=== PATIENT | female | born 1960 | race Caucasian/White ===

== ENCOUNTER 2017-04-07 05:37 | Outpatient (CLI) | payer BC ==
[~2017-04-07] VITALS: Ht 157.5 cm; Wt 50.8 kg
[~2017-04-07 05:37] MED LIST: HYDR1TAB86 PO
== END 2017-04-07 10:20 ==
LOC: PREOP 05:37
PROVIDERS: ATTEND Surgery
DX: Z01.818 Encounter for other preprocedural examination (principal); Z12.11 Encounter for screening for malignant neoplasm of colon

== ENCOUNTER 2017-04-11 07:03 | Day surgery (SDC) | payer BC ==
[~2017-04-11] VITALS: Ht 157.5 cm; Wt 50.8 kg
--- OUTSIDE RECORDS SUMMARY | 2017-04-11 07:05 | XMS REPORT | Continuity of Care Document ---
Author Author [facility] Organization [facility] Address Unknown Phone Unavailable Allergies Active Description Code Type Severity Reaction Onset Reported/Identified Relationship to Patient Clinical Status Yes No Known Drug Allergies [id number] Drug Allergy Unknown N/ A 05/21/2012 Medications Problems Date Dx Coded Attending Type Code Diagnosis Diagnosed By 01/12/2016 KESHA DPM, NEYMAR Q Ot M79.661 PAIN IN RIGHT LOWER LEG 01/12/2016 KESHA DPM, NEYMAR Q Ot M79.89 OTHER SPECIFIED SOFT TISSUE DISORDERS 01/15/2016 KESHA DPM, NEYMAR Q Ot M79.661 PAIN IN RIGHT LOWER LEG 01/15/2016 KESHA DPM, NEYMAR Q Ot M79.89 OTHER SPECIFIED SOFT TISSUE DISORDERS 01/17/2016 KESHA DPM, NEYMAR Q Ot M79.661 PAIN IN RIGHT LOWER LEG 01/17/2016 KESHA DPM, NEYMAR Q Ot M79.89 OTHER SPECIFIED SOFT TISSUE DISORDERS 02/05/2016 KESHA DPM, NEYMAR Q Ot M79.661 PAIN IN RIGHT LOWER LEG 02/05/2016 KESHA DPM, NEYMAR Q Ot M79.89 OTHER SPECIFIED SOFT TISSUE DISORDERS Procedures Results Encounters ACCT No. Visit Date/Time Discharge Status Pt. Type Provider Facility Loc./Unit Complaint [id number] 01/11/2016 14:45:00 2015 23:59:59 CLS Outpatient KESHA DPM, NEYMAR Q [facility] RAD [id number] 03/26/2013 13:15:00 2012 17:25:00 DIS Outpatient [id number] 03/26/2013 10:31:00 2012 23:59:59 CLS Outpatient [id number] 04/11/2017 08:00:00 PEN Preadmit [place] ENCINAS DO [facility] ENDO SCREENING
[2017-04-11] MEDS ORDERED: LACTATED RINGERS 1,000 ML IV STA (07:09)
[2017-04-11] MEDS ORDERED: MIDAZOLAM 2 MG/2 ML (VERSED) VIAL ONE ×2 (07:19→08:07)
[2017-04-11] MEDS ORDERED: proPOfol 200 MG/20 ML (DIPRIVAN) VIAL IV ONE ×2 (07:19→08:10)
[2017-04-11 07:32] VITALS: BP 108/67
--- NOTE | 2017-04-11 07:43 | Progress Note-Pre Operative ---
Pre-Operative Progress Note H&P Reviewed The H&P was reviewed, patient examined and no changes noted. Date Seen by Provider: Apr 11, 2017 Time Seen by Provider: 07:43 Date H&P Reviewed: Apr 11, 2017 Time H&P Reviewed: 07:43 Pre-Operative Diagnosis: screening colonoscopy [place] ENCINAS DO Apr 11, 2017 7:43 am
--- NOTE | 2017-04-11 08:25 | Progress Note-Post Operative ---
Post-Operative Progess Note Surgeon (s)/Locomotive Electrician (s) Surgeon [place] ENCINAS DO Locomotive Electrician: na Pre-Operative Diagnosis screening colonoscopy Post-Operative Diagnosis normal colon Procedure & Operative Findings Date of Procedure 04/11/17 Procedure Performed/Findings colonoscopy Anesthesia Type per unit secy Estimated Blood Loss Estimated blood loss (mL): none Specimens/Packing Specimens Removed na [place] ENCINAS DO Apr 11, 2017 8:25 am
--- NOTE | 2017-04-11 08:26 | Discharge Inst-Simple/Standard ---
Discharge Inst-Standard Patient Instructions/Follow Up Plan of Care/Instructions/FU: 10 year repeat colonoscopy unless family history or personal history of polyps which would be 5 years. If you have any problems before that be re-evaluated at that time. Activity as Tolerated: Yes Discharge Diet: Regular Diet NY ENCINAS DO Apr 11, 2017 8:26 am
[2017-04-11 08:30] VITALS: BP 112/60
[2017-04-11 09:10] VITALS: BP 119/64
[2017-04-11 09:16] VITALS: BP 119/64
--- NOTE | 2017-04-11 13:04 | OPERATIVE REPORT ---
DATE OF SERVICE: 04/11/2017 PREOPERATIVE DIAGNOSIS: Screening colonoscopy. POSTOPERATIVE DIAGNOSIS: Normal colon. PROCEDURE: Colonoscopy. SURGEON: Ny Madrigal DO ANESTHESIA: Per CHANGE MANAGEMENT ADMINISTRATOR. ESTIMATED BLOOD LOSS: None. COMPLICATIONS: None. INDICATIONS: The patient is a 56-year-old female in need of screening colonoscopy. She understands risks and benefits of procedure and wished to proceed with procedure. Consent was signed and in the chart. DESCRIPTION OF PROCEDURE: The patient was taken to the endoscopy suite, placed in left lateral recumbent position. Timeout was performed. A digital rectal exam was performed and there were no palpable polyps, masses or ulcerations. Scope was inserted in the rectum and advanced all the way to the cecum with minimal difficulty. Prep was adequate. Scope was then slowly retracted back. There were no polyps, masses or ulcerations within the cecum, ascending, transverse and descending colon. There were no polyps, masses or ulcerations in the entire colon. Once in the rectum, it was also retroflexed noting no other pathology. Scope was returned to its normal position, slowly withdrawn until completely removed. The patient tolerated the procedure well without any complications. RECOMMENDATIONS: The patient will need repeat colonoscopy in 10 years unless family history of colon cancer, personal history of colon polyps which would then be 5 years. If she has any problems prior to that, she should be reevaluated at that time. Job ID: [id number] DocumentID: [id number] Dictated Date: 04/11/2017 08:23:39 Maintenance Repairman Date: 04/11/2017 13:03:28 Dictated By: NY MADRIGAL DO MTDD
== END 2017-04-11 09:30 | disposition home or self-care (01) ==
LOC: ENDO 07:03
PROVIDERS: ATTEND Surgery
DX: Z12.11 Encounter for screening for malignant neoplasm of colon (principal); G62.9 Polyneuropathy, unspecified; Z79.899 Other long term (current) drug therapy

== ENCOUNTER 2021-03-02 21:07 | Emergency (ER) | payer BC ==
[~2021-03-02] VITALS: Ht 157.5 cm; Wt 46.7 kg
[2021-03-02] MEDS ORDERED: AUGMENTIN 875 MG TAB (AMOXICILLIN/CLAVULANATE) PO STA (22:31)
[2021-03-02] MEDS ORDERED: AMOX-358 PO (22:34)
--- NOTE | 2021-03-02 22:36 | ED Integumentary General ---
General Chief Complaint: Bite-Animal/Human/Insect Stated Complaint: DOG BITE L LEG History of Present Illness Date Seen by Provider: Mar 02, 2021 Time Seen by Provider: 22:15 Initial Comments 60-year-old female presents after a dog bite to the left thigh. She states this happened at approximately 2030 tonight. The production planner she reports that the dog has been vaccinated for rabies. They did not have documentation. The long portion is present to get reports and will verify tomorrow if the dog is vaccinated. The patient believes that she received all of her vaccines including a tetanus approximately 2 years ago. The wound was washed with skin prep and triple antibiotic ointment was applied prior to arrival. There is no active bleeding from the wounds. Timing/Duration: this evening Severity: mild Location: extremities (Left thigh) Possible Cause: other (Dog bite) Associated Symptoms: denies symptoms Allergies and Home Medications Allergies Coded Allergies: No Known Drug Allergies (Unverified , 05/21/12) Home Medications Amoxicillin/Potassium Clav 1 Each Tablet, 1 EACH PO BID Prescribed by: DEJA WINSTON on 03/02/21 [id number] Patient Home Medication List Home Medication List Reviewed: Yes Review of Systems Review of Systems Constitutional: no symptoms reported, see HPI Skin: see HPI, other (Skin lacerations.......... Patient. Secondary to dog bite) All Other Systems Reviewed Negative Unless Noted: Yes Past Obttobd-Ugqezr-Rpyegt Hx Immunizations Up To Date Tetanus Booster (TDap): Unknown Seasonal Allergies Seasonal Allergies: No Past Medical History Gallbladder Reproductive Disorders: No Family Medical History Reviewed and Corrections made Physical Exam Vital Signs Vital Signs - First Documented 03/02/21 21:55 Temp 36.2 Pulse 71 Resp 20 B/P (MAP) 146/80 (102) Pulse Ox 98 O2 Delivery Room Air Capillary Refill : General Appearance: WD/WN, no apparent distress Cardiovascular: normal peripheral pulses, regular rate, rhythm Respiratory: chest non-tender, lungs clear, normal breath sounds Extremities: no pedal edema, no calf tenderness, normal capillary refill, other (superficial abrasions and ecchymosis to the anterior and lateral left thigh. Full range of motion to the left hip and full motor strength to the left quad.) Neurologic/Psychiatric: no motor/sensory deficits, alert, normal mood/affect, oriented x 3 Skin Problem Location: lower extremities (Left thigh) Skin Problem Character: tenderness Progress/Results/Core Measures Results/Orders My Orders Orders - DEJA WINSTON Amoxicillin/Clavulanate Tablet (Augmenti (03/02/21 22:31) Vital Signs/I&O 03/02/21 21:55 Temp 36.2 Pulse 71 Resp 20 B/P (MAP) 146/80 (102) Pulse Ox 98 O2 Delivery Room Air Progress Progress Note : Time: 22:15 Progress Note Patient seen and evaluated, wound cleaned with sterile saline and Hibiclens. Sterile dressing with Deshaun wrap applied. Ice pack to wound. Law Enforcement took report and will verify vaccination of the dog tomorrow. Discussed at length with the patient and her about starting the rabies vaccine and the IgG injection. At this time they wish to wait and verify vaccination before starting. She also wishes to verify with her PCP before getting a tetanus vaccine. Discharge instructions and return precautions reviewed with the patient. Departure Impression Primary Impression: Dog bite Qualified Codes: W54.0XXA - Bitten by dog, initial encounter Disposition: HOME, SELF-CARE Condition: Improved Departure-Patient Inst. Decision time for Depature: 22:50 Referrals: MARJORIE ANGLIN MD (PCP/Family) Primary Care Physician Patient Instructions: Animal Bites (DC) Add. Discharge Instructions: Keep wound clean and dry with soap and water and apply antibiotic ointment. Take antibiotics as prescribed. Once you obtain verification of the animals vaccination status you can decide if you want the Rabies shots and IGG wound injection. Follow-up with your primary care provider to determine if you have had a tetanus vaccine in the last 5 years. Watch for signs of infection: Redness, swelling, fever, discolored drainage. Apply ice to the left thigh for 20 minutes every 2 hours while awake to help with swelling. Return to the emergency department for new, urgent healthcare needs. All discharge instructions reviewed with patient and/or family. Voiced understanding. Scripts Amoxicillin/Potassium Clav (Augmentin 875-125 Tablet) 1 Each Tablet 1 EACH PO BID, #20 TAB 0 Refills Prov: DEJA WINSTON 03/02/21 Copy Copies To 1: MARJORIE ANGLIN MD, AMY ARNP Mar 02, 2021 22:36
[2021-03-02 23:13] VITALS: BP 146/80
== END 2021-03-02 23:13 | disposition home or self-care (01) ==
LOC: EDUNIT# 21:07 → ER 21:10
DX: S71.152A Open bite, left thigh, initial encounter (principal); W54.0XXA Bitten by dog, initial encounter
CPT/HCPCS: 99283

== ENCOUNTER 2021-04-14 06:53 | Day surgery (SDC) | payer BC ==
[2021-04-14] VITALS (9 sets, daily range): BP systolic 88–108; BP diastolic 44–54
[~2021-04-14] VITALS: Ht 157.4 cm; Wt 42.2 kg
[~2021-04-14 06:53] MED LIST changes: +AMOX-358 PO
[2021-04-14] MEDS ORDERED: LACTATED RINGERS 1,000 ML IV ONE (07:00)
[2021-04-14] MEDS ORDERED: ONDANSETRON 4 MG/2 ML (SDV) Z0FRAN IVP ONE (07:00)
[2021-04-14] MEDS ORDERED: fentaNYL INJ 100 MCG/2 ML AMP IVP ONE (07:30)
[2021-04-14] MEDS ORDERED: ESCI-2 (07:32)
[2021-04-14] MEDS ORDERED: morphine INJ 10 MG/ML 1ML (SYR OR VIAL) IVP STA (07:32)
[2021-04-14 07:33] LABS: BASOPHILS # (AUTO) 0.1 10^3/uL (0.0-0.1); BASOPHILS % (AUTO) 1 % (0-10); EOSINOPHILS % (AUTO) 0 % (0-10); HEMATOCRIT 40 % (35-52); HEMOGLOBIN 13.8 g/dL (11.5-16.0); LYMPHOCYTES # (AUTO) 0.7 10^3/uL (1.0-4.0); LYMPHOCYTES % (AUTO) 6 % (12-44); MEAN CORPUSCULAR HEMOGLOBIN 32 pg (25-34); MEAN CORPUSCULAR HGB CONC 35 g/dL (32-36); MEAN CORPUSCULAR VOLUME 91 fL (80-99); MEAN PLATELET VOLUME 9.8 fL (9.0-12.2); MONOCYTES # (AUTO) 0.3 10^3/uL (0.0-1.0); MONOCYTES % (AUTO) 3 % (0-12); NEUTROPHILS # (AUTO) 10.7 10^3/uL (1.8-7.8); NEUTROPHILS % (AUTO) 90 % (42-75); PLATELET COUNT 267 10^3/uL (130-400); WHITE BLOOD COUNT 11.8 10^3/uL (4.3-11.0)
[2021-04-14 07:37] LABS: ALBUMIN 4.7 GM/DL (3.2-4.5)
[2021-04-14 07:38] LABS: CHLORIDE 102 MMOL/L (98-107); POTASSIUM 3.6 MMOL/L (3.6-5.0); SODIUM 139 MMOL/L (135-145)
[2021-04-14 07:39] LABS: CALCIUM 10.6 MG/DL (8.5-10.1)
[2021-04-14 07:40] LABS: GLUCOSE 198 MG/DL (70-105); TOTAL PROTEIN 8.7 GM/DL (6.4-8.2)
[2021-04-14 07:41] LABS: CARBON DIOXIDE 18 MMOL/L (21-32)
[2021-04-14 07:42] LABS: BILIRUBIN,TOTAL 0.8 MG/DL (0.1-1.0)
[2021-04-14 07:43] LABS: ALKALINE PHOSPHATASE 75 U/L (40-136)
[2021-04-14 07:44] LABS: CREATININE SERUM 1.06 MG/DL (0.60-1.30); GFR ESTIMATED 53
[2021-04-14 07:45] LABS: BUN/CREATININE RATIO 16
--- NOTE | 2021-04-14 07:45 | ED Abdominal Pain ---
General Chief Complaint: Abdominal/GI Problems Stated Complaint: VOMITING,WEAK,ABD PAIN Nursing Triage Note: ARRIVED VIA WC FROM HOME. GI CRAMPING AND VOMITING STARTING YESTERDAY. Source of Information: Patient, Spouse Exam Limitations: No Limitations (JIMMY CH STUDENT) History of Present Illness Date Seen by Provider: Apr 14, 2021 Time Seen by Provider: 07:25 Initial Comments This is [place], a 60 yo F who presents to the ED with c/o abdominal pain. The cramping started yesterday around 1100, stated that she had a grapefruit that morning that might have been a little bit sour. No other foods out of the ordinary mentioned. The vomiting started at 1300 yesterday and has not subsided as of today. The cramping and vomiting got worse overnight, she has now developed abdominal pain, rated as 10/10. She was having constipation and took 2 doses of laxatives, she had a bowel movement this morning. Positive for nausea, vomiting, abdominal pain, constipation, headaches, shortness of breath and dizziness. Denies diarrhea, chest pain, palpitations, cough, fever. Denies chills, but is cold at the moment. Timing/Duration: 12-24 Hours Severity/Quality: Severe, Cramping, Other (constant) Location: Generalized Abdomen Radiation: No Radiation Activities at Onset: Rest Modifying Factors: Worsens With Movement, Worsens With Palpation, Worsens With Vomiting Associated Symptoms: No Diaphoresis, No Fatigue; Headache, Nausea/Vomiting, Shortness of Air (JIMMY CH STUDENT) Activities at Onset: Rest (JITENDRA YANG MD) Allergies and Home Medications Allergies Coded Allergies: No Known Drug Allergies (Unverified , 05/21/12) Patient Home Medication List Home Medication List Reviewed: Yes (JITENDRA YANG MD) Docusate Sodium (Colace) 100 Mg Capsule, 100 MG PO DAILY Prescribed by: NY ENCINAS on 04/14/21 1639 Escitalopram Oxalate (Escitalopram Oxalate) 10 Mg Tablet, (Reported) Entered as Reported by: POLI WEBB on 04/14/21 0732 Last Action: New Order Hydrocodone/Acetaminophen (Hydrocodone-Acetamin 5-325 mg) 1 Each Tablet, 1 EACH PO Q4H PRN for PAIN-MODERATE (5-7) Prescribed by: NY ENCINAS on 04/14/21 1640 Discontinued Medications Amoxicillin/Potassium Clav (Augmentin 875-125 Tablet) 1 Each Tablet, 1 EACH PO BID Discontinued Reason: No Longer Taking Prescribed by: DEJA WINSTON on 03/02/212233 Last Action: Discontinued Review of Systems Review of Systems Constitutional: No chills, No diaphoresis; dizziness; No fever EENTM: No Symptoms Reported Respiratory: Denies Cough; Shortness of Air Cardiovascular: Denies Chest Pain, Denies Palpitations Gastrointestinal: Abdominal Pain; Denies Blood Streaked Stools; Constipated; Denies Diarrhea; Nausea, Poor Fluid Intake, Vomiting Genitourinary: No Symptoms Reported Musculoskeletal: no symptoms reported Skin: no symptoms reported Psychiatric/Neurological: Depressed, Headache (JIMMY CH MED STUDENT) Past Jbxpvdn-Oobioa-Jecasi Hx Patient Social History Tobacco Use?: No Smoking Status: Never a Smoker Substance use?: No (JIMMY CH Medialets STUDENT) Immunizations Up To Date Tetanus Booster (TDap): Unknown Second COVID19 Vaccination Vikas: 10/04 COVID19 Vaccine [employer] 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 (JIMMY CH Medialets STUDENT) Seasonal Allergies Seasonal Allergies: No (JIMMY CH Medialets STUDENT) Past Medical History Surgeries: Yes Gallbladder Respiratory: No Cardiac: No Neurological: No Reproductive Disorders: No 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 0.0oz. [id number]; 18.00 BMI Method: General Appearance: WD/WN, severe distress Neck: non-tender, supple; No lymphadenopathy (R), No lymphadenopathy (L) Respiratory: chest non-tender, lungs clear, normal breath sounds Cardiovascular: normal peripheral pulses, regular rate, rhythm, no murmur Gastrointestinal: normal bowel sounds, guarding, tenderness (tenderness with stethoscope placement ) Neurologic/Psychiatric: alert, normal mood/affect, oriented x 3 Skin: normal color, cool (JIMMY CH MED STUDENT) Progress/Results/Core Measures Results/Orders Lab Results Laboratory Tests Test 04/14/21 07:22 04/14/21 07:58 04/14/21 09:12 Range/Units White Blood Count 11.8 H 4.3-11.0 10^3/uL Red Blood Count 4.35 3.80-5.11 10^6/uL Hemoglobin 13.8 11.5-16.0 g/dL Hematocrit 40 35-52 % Mean Corpuscular Volume 91 80-99 fL Mean Corpuscular Hemoglobin 32 25-34 pg Mean Corpuscular Hemoglobin Concent 35 32-36 g/dL Red Cell Distribution Width 12.1 10.0-14.5 % Platelet Count 267 130-400 10^3/uL Mean Platelet Volume 9.8 9.0-12.2 fL Immature Granulocyte % (Auto) 0 % Neutrophils (%) (Auto) 90 H 42-75 % Lymphocytes (%) (Auto) 6 L 12-44 % Monocytes (%) (Auto) 3 0-12 % Eosinophils (%) (Auto) 0 0-10 % Basophils (%) (Auto) 1 0-10 % Neutrophils # (Auto) 10.7 H 1.8-7.8 10^3/uL Lymphocytes # (Auto) 0.7 L 1.0-4.0 10^3/uL Monocytes # (Auto) 0.3 0.0-1.0 10^3/uL Eosinophils # (Auto) 0.0 0.0-0.3 10^3/uL Basophils # (Auto) 0.1 0.0-0.1 10^3/uL Immature Granulocyte # (Auto) 0.1 0.0-0.1 10^3/uL Neutrophils % (Manual) 88 % Lymphocytes % (Manual) 8 % Monocytes % (Manual) 3 % Eosinophils % (Manual) 0 % Basophils % (Manual) 0 % Band Neutrophils 1 % Blood Morphology Comment NORMAL Sodium Level 139 135-145 MMOL/L Potassium Level 3.6 3.6-5.0 MMOL/L Chloride Level 102 98-107 MMOL/L Carbon Dioxide Level 18 L 21-32 MMOL/L Anion Gap 19 H 5-14 MMOL/L Blood Urea Nitrogen 17 7-18 MG/DL Creatinine 1.06 0.60-1.30 MG/DL Estimat Glomerular Filtration Rate 53 BUN/Creatinine Ratio 16 Glucose Level 198 H 70-105 MG/DL Calcium Level 10.6 H 8.5-10.1 MG/DL Corrected Calcium 8.5-10.1 MG/DL Magnesium Level 1.9 1.6-2.4 MG/DL Total Bilirubin 0.8 0.1-1.0 MG/DL Aspartate Amino Transf (AST/SGOT) 28 5-34 U/L Alanine Aminotransferase (ALT/SGPT) 29 0-55 U/L Alkaline Phosphatase 75 40-136 U/L C-Reactive Protein High Sensitivity 0.05 0.00-0.50 MG/DL Total Protein 8.7 H 6.4-8.2 GM/DL Albumin 4.7 H 3.2-4.5 GM/DL Lipase 30 8-78 U/L Influenza Type A (RT-PCR) Not Detected Not Detecte Influenza Type B (RT-PCR) Not Detected Not Detecte SARS-CoV-2 RNA (RT-PCR) Not Detected Not Detecte Urine Color YELLOW Urine Clarity CLEAR Urine pH 7.0 5-9 Urine Specific [place] 1.010 L 1.016-1.022 Urine Protein TRACE H NEGATIVE Urine Glucose (UA) NEGATIVE NEGATIVE Urine Ketones 3+ H NEGATIVE Urine Nitrite NEGATIVE NEGATIVE Urine Bilirubin NEGATIVE NEGATIVE Urine Urobilinogen 0.2 < = 1.0 MG/DL Urine Leukocyte Esterase NEGATIVE NEGATIVE Urine RBC (Auto) TRACE-L NEGATIVE Urine RBC RARE /HPF Urine WBC NONE /HPF Urine Squamous Epithelial Cells RARE /HPF Urine Crystals NONE /LPF Urine Bacteria TRACE /HPF Urine Casts NONE /LPF Urine Mucus RARE /LPF Urine Culture Indicated NO (JITENDRA YANG MD) My Orders Orders - JITENDRA YANG MD Cbc With Automated Diff (04/14/21 06:58) Comprehensive Metabolic Panel (04/14/21 06:58) Lipase (04/14/21 06:58) Magnesium (04/14/21 06:58) Ua Culture If Indicated (04/14/21 06:58) Ed Iv/Invasive Line Start (04/14/21 06:58) Ondansetron Injection (Zofran Injectio (04/14/21 07:00) Lactated Ringers (Lr 1000 Ml Iv Solution (04/14/21 07:00) Fentanyl Inj (Sublimaze Injection) (04/14/21 07:30) Morphine Injection (Morphine Injection (04/14/21 07:32) Manual Differential (04/14/21 07:22) Influenza A And B By Pcr (04/14/21 07:57) Covid 19 Inhouse Test (04/14/21 07:57) Hs C Reactive Protein (04/14/21 08:01) Ct Abdomen/Pelvis W (04/14/21 08:01) Chest 1 View, Ap/Pa Only (04/14/21 08:01) Iohexol Injection (Omnipaque 350 Mg/Ml 1 (04/14/21 08:15) Received Contrast (Hold Metformin- Contr (04/14/21 08:15) Sodium Chloride Flush (Catheter Flush Sy (04/14/21 08:15) Ns (Ivpb) (Sodium Chloride 0.9% Ivpb Bag (04/14/21 08:15) (JITENDRA YANG MD) Medications Given in ED (JITENDAR YANG MD) Vital Signs/I&O 04/14/21 07:10 Temp 35.6 Pulse 69 Resp 16 B/P (MAP) 110/71 (84) Pulse Ox 100 O2 Delivery Room Air (JITENDRA YANG MD) Blood Pressure Mean: 84 Progress Progress Note : Time: 08:00 Progress Note 0800 Pt has requested a covid-19 test. She was informed that these are not the typical symptoms of covid, but that her labs showed lymphopenia. Pt kidney function came back normal. She was informed of doing the CT scan with contrast. (JIMMY CH MED STUDENT) Progress Note : Time: 10:29 Progress Note Patient's pain was only minimally improved with fentanyl. Morphine was then given which improved her pain greatly. Repeat examination after pain was controlled revealed point tenderness in the very far right lower quadrant. CT scan was viewed by me and reviewed with Dr. Beebe. There was concern for a di lated appendix with appendicolith. These findings were suspicious for acute uncomplicated appendicitis. These findings were discussed with Dr. Encinas who requested the patient be admitted for probable appendectomy. (JITENDRA YANG MD) Diagnostic Imaging Diagonstic Imaging: CT Plain Films/CT/US/NM/MRI: abdomen, pelvis Comments CT abdomen pelvis viewed by me and report reviewed. See report below: NAME: SHAWNEE REBOLLEDO [facility] REC#: [id number] PT STATUS: REG ER : 1960 PHYSICIAN: JITENDRA YANG MD ADMIT DATE: 04/14/21/ER Draft Date of Exam:04/14/21 CT ABDOMEN/PELVIS W PROCEDURE: CT abdomen and pelvis with contrast. TECHNIQUE: Multiple contiguous axial images were obtained through the abdomen and pelvis after administration of intravenous contrast. Auto Exposure Controls were utilized during the CT exam to meet ALARA standards for radiation dose reduction. All CT scans use one or more of the following dose optimizing techniques: automated exposure control, MA and/or KvP adjustment based on patient size and exam type or iterative reconstruction. INDICATION: Cramping and abdominal pain. FINDINGS: The previous CT abdomen/pelvis exam performed on 03/26/2013 noted cholelithiasis with acute cholecystitis. In the interval since the prior exam, the patient has undergone a cholecystectomy. Surgical clips are now evident in the gallbladder fossa. The common bile duct near its entrance to the head of pancreas is dilated measuring 10 mm (normal 5 to 6 mm or less). There is no evidence for choledocholithiasis or for a pancreatic mass and the dilatation of the common bile duct may be a sequela of the patient's prior cholecystectomy. If further evaluation of the duct is desired, however, then MRCP would be recommended. The liver itself is not enlarged and appears homogeneous. The spleen, pancreas, kidneys, adrenals, aorta, inferior vena cava, and portal vein show no sign of an acute abnormality. The stomach is partially filled with fluid and difficult to assess. There is some fluid in the 2nd and 3rd portions of the duodenum. This is nonspecific but could be related to mild duodenitis. The images through the pelvis show that there is a tubular structure extending from the tip of the cecum. There does seem to be an appendicolith present near the base of the appendix and I suspect that this tubular structure is a slightly enlarged appendix as it measures roughly 10 mm in size (normal 8 mm or less). There does not appear to be any significant distortion of the periappendiceal fat but the possibility of early appendicitis should certainly be considered. If clinically indicated, a surgical consult would be recommended. There is no pelvic mass or free fluid collection noted. As seen on the prior exam, there are tubal ligation clips on each side of the uterus. The urinary bladder is grossly unremarkable. The bone windows show no sign of a fracture or destructive lesion. There is fairly severe degenerative disc and bony disease at L3-L4 and L4-L5. The lung bases are clear. IMPRESSION: 1. The tubular structure extending from the tip of the cecum is suspicious for a slightly inflamed appendix. Clinical followup is recommended. 2. The fluid in the 2nd and 3rd portions of the duodenum is nonspecific. The possibility of mild duodenitis should also be considered. 3. There has been an interval cholecystectomy. 4. These results were discussed with Dr. Mcconnell at the time of this dictation. CRITICAL FINDING Dictated on workstation # [id number] Dict: 04/14/21915 Trans: 04/14/21936 [id number] Interpreted by: NO BEEBE MD Diagonstic Imaging: Xray Plain Films/CT/US/NM/MRI: chest Comments Chest x-ray viewed by me and report reviewed. See report below: NAME: SHAWNEE REBOLLEDO [facility] REC#: [id number] PT STATUS: REG ER : 1960 PHYSICIAN: JITENDRA YANG MD ADMIT DATE: 04/14/21/ER Signed Date of Exam:04/14/21 CHEST 1 VIEW, AP/PA ONLY INDICATION: Abdominal pain with vomiting x1 day Portable chest 10:03 AM There is no intraperitoneal free air. Lungs are clear. There are no effusions or pneumothoraces. Heart size and pulmonary vascularity are normal. IMPRESSION: Negative chest. Dictated by: Dictated on workstation # [id number] Dict: 04/14/21908 Trans: 04/14/21919 [facility] [id number] Interpreted by: ARNOLDO PIRES MD Electronically signed by: ARNOLDO PIRES MD 04/14/21919 (JITENDRA YANG MD) Departure Communication (Admissions) Time/Spoke to Admitting Phy: 09:55 Dr. Encinas (JITENDRA YANG MD) Impression Primary Impression: Acute appendicitis Qualified Codes: K35.30 - Acute appendicitis with localized peritonitis, without perforation or gangrene Additional Impressions: Nausea & vomiting Qualified Codes: R11.2 - Nausea with vomiting, unspecified Generalized abdominal pain Disposition: ADMITTED INPATIENT Condition: Improved Admissions Decision to Admit Reason: Admit from ER (General) Decision to Admit/Date: Apr 14, 2021 Time/Decision to Admit Time: 09:55 (JITENDRA YANG MD) Departure-Patient Inst. Referrals: MARJORIE ANGLIN MD (PCP/Family) Primary Care Physician Scripts Hydrocodone/Acetaminophen (Hydrocodone-Acetamin 5-325 mg) 1 Each Tablet 1 EACH PO Q4H PRN for PAIN-MODERATE (5-7), #30 TAB Prov: NY ENCINAS DO 04/14/21 Docusate Sodium (Colace) 100 Mg Capsule 100 MG PO DAILY, #30 CAP Prov: NY ENCINAS DO 04/14/21 Medical Student Attestation and Attending Note: I have personally interviewed and examined this patient along with HUMERA Vega. I have reviewed student documentation including history, physical, and assessments. I agree with the documentation except where otherwise noted. Exam: General: Alert, oriented, moderate distress, well developed. Thin HEENT: Normocephalic and atraumatic, mucous membranes somewhat dry Heart: Regular rate and rhythm without murmur Lungs: Clear to auscultation bilaterally with normal effort Abdomen: Soft, generalized tenderness throughout with right lower quadrant focal tenderness noted after pain control, nondistended, normal bowel sounds Neuropsych: Alert, oriented, no focal deficits Skin: Warm and dry without rashes (JITENDRA YANG MD) JIMMY CH MED STUDENT Apr 14, 2021 07:45 JITENDRA YANG MD Apr 14, 2021 10:31
[2021-04-14 07:47] LABS: ALANINE AMINOTRANSFERASE 29 U/L (0-55); MAGNESIUM 1.9 MG/DL (1.6-2.4)
[2021-04-14 07:48] LABS: LIPASE 30 U/L (8-78)
[2021-04-14 08:11] LABS: BAND NEUTROPHILS 1 %; BASOPHILS % (MANUAL) 0 %; EOSINOPHILS % (MANUAL) 0 %; LYMPHOCYTES % (MANUAL) 8 %; MONOCYTES % (MANUAL) 3 %; NEUTROPHILS % (MANUAL) 88 %; RBC MORPH NORMAL
[2021-04-14] MEDS ORDERED: CATHETER FLUSH 10 ML SYR IV PRN ×2 (08:15→12:15)
[2021-04-14] MEDS ORDERED: IOHEXOL 350 MG/ML 100 ML (OMNIPAQUE 350) VIAL IV ONE (08:15)
[2021-04-14] MEDS ORDERED: HOLD METFORMIN - RECEIVED CONTRAST 20 ML VIAL IV SCH (08:15)
[2021-04-14] MEDS ORDERED: NS 100 ML (IVPB) BAG IV ONE (08:15)
--- NOTE | 2021-04-14 09:14 | Diagnostic Imaging Report ---
INDICATION: Abdominal pain with vomiting x1 day Portable chest 10:03 AM There is no intraperitoneal free air. Lungs are clear. There are no effusions or pneumothoraces. Heart size and pulmonary vascularity are normal. IMPRESSION: Negative chest. Dictated by: Dictated on workstation # [id number]
[2021-04-14 09:20] LABS: BILIRUBIN,URINE NEGATIVE (NEGATIVE); CLARITY,URINE CLEAR; COLOR,URINE YELLOW; GLUCOSE, URINE (UA) NEGATIVE (NEGATIVE); KETONES,URINE 3+ (NEGATIVE); LEUKOCYTE ESTERASE ,URINE NEGATIVE (NEGATIVE); NITRITE,URINE NEGATIVE (NEGATIVE); PROTEIN,URINE TRACE (NEGATIVE)
[2021-04-14 09:36] LABS: RBC,URINE RARE /HPF
[2021-04-14 09:37] LABS: BACTERIA,URINE TRACE /HPF; SQUAMOUS EPITHELIAL CELL,UR RARE /HPF
--- NOTE | 2021-04-14 09:37 | Diagnostic Imaging Report ---
PROCEDURE: CT abdomen and pelvis with contrast. TECHNIQUE: Multiple contiguous axial images were obtained through the abdomen and pelvis after administration of intravenous contrast. Auto Exposure Controls were utilized during the CT exam to meet ALARA standards for radiation dose reduction. All CT scans use one or more of the following dose optimizing techniques: automated exposure control, MA and/or KvP adjustment based on patient size and exam type or iterative reconstruction. INDICATION: Cramping and abdominal pain. FINDINGS: The previous CT abdomen/pelvis exam performed on 03/26/2013 noted cholelithiasis with acute cholecystitis. In the interval since the prior exam, the patient has undergone a cholecystectomy. Surgical clips are now evident in the gallbladder fossa. The common bile duct near its entrance to the head of pancreas is dilated measuring 10 mm (normal 5 to 6 mm or less). There is no evidence for choledocholithiasis or for a pancreatic mass and the dilatation of the common bile duct may be a sequela of the patient's prior cholecystectomy. If further evaluation of the duct is desired, however, then MRCP would be recommended. The liver itself is not enlarged and appears homogeneous. The spleen, pancreas, kidneys, adrenals, aorta, inferior vena cava, and portal vein show no sign of an acute abnormality. The stomach is partially filled with fluid and difficult to assess. There is some fluid in the 2nd and 3rd portions of the duodenum. This is nonspecific but could be related to mild duodenitis. The images through the pelvis show that there is a tubular structure extending from the tip of the cecum. There does seem to be an appendicolith present near the base of the appendix and this tubular structure may be slightly enlarged appendix. This measures roughly 10 mm in size (normal 8 mm or less). There does not appear to be any significant distortion of the periappendiceal fat but the possibility of early appendicitis should certainly be considered. If clinically indicated, a surgical consult would be recommended. There is no pelvic mass or free fluid collection noted. As seen on the prior exam, there are tubal ligation clips on each side of the uterus. The urinary bladder is grossly unremarkable. The bone windows show no sign of a fracture or destructive lesion. There is fairly severe degenerative disc and bony disease at L3-L4 and L4-L5. The lung bases are clear. IMPRESSION: 1. The tubular structure extending from the tip of the cecum is suspicious for a slightly inflamed appendix. Clinical followup is recommended. 2. The fluid in the 2nd and 3rd portions of the duodenum is nonspecific. The possibility of mild duodenitis should also be considered. 3. There has been an interval cholecystectomy. The common bile duct is prominent. Additional considerations as above. 4. These results were discussed with Dr. Mcconnell at the time of this dictation. CRITICAL FINDING Dictated by: Dictated on workstation # [id number]
--- NOTE | 2021-04-14 11:55 | History & Physical-Surgical ---
KEE RAY 04/14/21 1155: History of Present Illness History of Present Illness Reason for visit/HPI Patient is a 60yo female presenting today for severe abdominal pain, nausea, vomiting, headache and shortness of breath. The abdominal pain started at about 1100 yesterday and she rates the pain as a 10/10. The pain was diffuse throughout the stomach and there was no radiation. She was vomiting all day yesterday and this morning but not since about 6am. She took some nyquil which did not help with the pain at all. She was constipated yesterday and took some laxatives which helped. She denies having any blood in her vomit or stool. She reports being very short of breath yesterday and this morning but that has improved. She had sweats/chills throughout the day yesterday but that has resolved. surgical history includes cholecystectomy and multiple knee and elbow surgeries. Date of Admission Apr 14, 2021 at 10:24 Date Seen by a Provider: Apr 14, 2021 Time Seen by a Provider: 11:40 I consulted on this patient on 04/14/21 11:40 Attending Physician Ny Encinas DO Admitting Physician Simin Lindo MD Consult Allergies and Home Medications Allergies Coded Allergies: No Known Drug Allergies (Unverified , 05/21/12) Patient Home Medication List Escitalopram Oxalate (Escitalopram Oxalate) 10 Mg Tablet, (Reported) Entered as Reported by: POLI WEBB on 04/14/21 0732 Last Action: New Order Discontinued Medications Amoxicillin/Potassium Clav (Augmentin 875-125 Tablet) 1 Each Tablet, 1 EACH PO BID Discontinued Reason: No Longer Taking Prescribed by: DEJA WINSTON on 03/02/21 1575 Last Action: Discontinued Past Ycbzpbv-Rwzvub-Tijraf Hx Patient Social History Tobacco Use?: No Smoking Status: Never a Smoker Substance use?: No Immunizations Up To Date Second COVID19 Vaccination Vikas: 10/04 Tetanus Booster (TDap): Unknown Seasonal Allergies Seasonal Allergies: No Current Status Advance Directives: No Primary Language: Lebanese Preferred Spoken Language: Lebanese Past Medical History Surgeries: Gallbladder QA [employer]CHIT[employer] History: Menopausal Depression Review of Systems Constitutional: No chills, No diaphoresis Respiratory: No cough, No short of breath Cardiovascular: No chest pain, No palpitations Gastrointestinal: abdominal pain (diffuse); No vomiting Genitourinary: No dysuria, No hematuria Physical Exam Vital Signs Vital Signs - First Documented 04/14/21 07:10 Temp 35.6 Pulse 69 Resp 16 B/P (MAP) 110/71 (84) Pulse Ox 100 O2 Delivery Room Air Capillary Refill : Less Than 3 Seconds Height, Weight, BMI Height: 5'2.00" Weight: 112lbs. 0.0oz. 50.728127ut; 18.00 BMI Method: General Appearance: No Apparent Distress, WD/WN HEENT: PERRL/EOMI, Moist Mucous Membranes Neck: Normal Inspection, Non Tender Respiratory: Chest Non Tender, Lungs Clear, Normal Breath Sounds, No Accessory Muscle Use, No Respiratory Distress Cardiovascular: Regular Rate, Rhythm, No Gallop, No Murmur, Normal Peripheral Pulses Gastrointestinal: Normal Bowel Sounds, Tenderness (RLQ) Extremity: Normal Capillary Refill, Non Tender, No Pedal Edema Neurologic/Psychiatric: Alert, Oriented x3, No Motor/Sensory Deficits, Normal Mood/Affect Skin: Normal Color, Warm/Dry Data Review Labs Laboratory Tests 04/14/21 07:22: White Blood Count 11.8H, Red Blood Count 4.35, Hemoglobin 13.8, Hematocrit 40, Mean Corpuscular Volume 91, Mean Corpuscular Hemoglobin 32, Mean Corpuscular Hemoglobin Concent 35, Red Cell Distribution Width 12.1, Platelet Count 267, Mean Platelet Volume 9.8, Immature Granulocyte % (Auto) 0, Neutrophils (%) (Auto) 90H, Lymphocytes (%) (Auto) 6L, Monocytes (%) (Auto) 3, Eosinophils (%) (Auto) 0, Basophils (%) (Auto) 1, Neutrophils # (Auto) 10.7H, Lymphocytes # (Auto) 0.7L, Monocytes # (Auto) 0.3, Eosinophils # (Auto) 0.0, Basophils # (Auto) 0.1, Immature Granulocyte # (Auto) 0.1, Neutrophils % (Manual) 88, Lymphocytes % (Manual) 8, Monocytes % (Manual) 3, Eosinophils % (Manual) 0, Basophils % (Manual) 0, Band Neutrophils 1, Blood Morphology Comment NORMAL, Sodium Level 139, Potassium Level 3.6, Chloride Level 102, Carbon Dioxide Level 18L, Anion Gap 19H, Blood Urea Nitrogen 17, Creatinine 1.06, Estimat Glomerular Filtration Rate 53, BUN/Creatinine Ratio 16, Glucose Level 198H, Calcium Level 10.6H, Corrected Calcium , Magnesium Level 1.9, Total Bilirubin 0.8, Aspartate Amino Transf (AST/SGOT) 28, Alanine Aminotransferase (ALT/SGPT) 29, Alkaline Phosphatase 75, C-Reactive Protein High Sensitivity 0.05, Total Protein 8.7H, Albumin 4.7H, Lipase 30 04/14/21 07:58: Influenza Type A (RT-PCR) Not Detected, Influenza Type B (RT-PCR) Not Detected, SARS-CoV-2 RNA (RT-PCR) Not Detected 04/14/21 09:12: Urine Color YELLOW, Urine Clarity CLEAR, Urine pH 7.0, Urine Specific [place] 1.010L, Urine Protein TRACEH, Urine Glucose (UA) NEGATIVE, Urine Ketones 3+H, Urine Nitrite NEGATIVE, Urine Bilirubin NEGATIVE, Urine Urobilinogen 0.2, Urine Leukocyte Esterase NEGATIVE, Urine RBC (Auto) TRACE-L, Urine RBC RARE, Urine WBC NONE, Urine Squamous Epithelial Cells RARE, Urine Crystals NONE, Urine Bacteria TRACE, Urine Casts NONE, Urine Mucus RARE, Urine Culture Indicated NO Assessment/Plan Assessment/Plan Admission Diagonsis Acute appendicitis Reason for Inpatient Admission: Acute appendicitis Assessment/Plan Acute appendicitis- appendectomy today. NPO, IV fluids and Fentanyl, Morphine for pain control [place] ENCINAS DO 04/14/21 1300: History of Present Illness History of Present Illness Reason for visit/HPI CC abdominal pain. Patient with 10/10 abdominal pain started yesterday. Then began worsening all night. Having nausea and vomiting. Has felt constipated. Pain around umbilicus and more towards rlq. Patient had ct scan that demonstrates dilated appendix and felt to be early appendicitis. Allergies and Home Medications Allergies Coded Allergies: No Known Drug Allergies (Unverified , 05/21/12) Patient Home Medication List Home Medication List Reviewed: Yes Escitalopram Oxalate (Escitalopram Oxalate) 10 Mg Tablet, (Reported) Entered as Reported by: POLI WEBB on 04/14/21 0732 Last Action: New Order Discontinued Medications Amoxicillin/Potassium Clav (Augmentin 875-125 Tablet) 1 Each Tablet, 1 EACH PO BID Discontinued Reason: No Longer Taking Prescribed by: DEJA WINSTON on 03/02/21 8581 Last Action: Discontinued Past Psevvww-Dseedn-Qjliae Hx Family Medical History Reviewed Nursing Family Hx No Pertinent Family Hx Review of Systems Constitutional: No chills, No diaphoresis EENTM: No blurred vision, No double vision Respiratory: No cough, No short of breath Cardiovascular: No chest pain, No palpitations Gastrointestinal: abdominal pain (RLQ), nausea, vomiting Genitourinary: No dysuria, No hematuria Musculoskeletal: No back pain, No joint pain Skin: No change in color, No change in hair/nails Psychiatric/Neurological: Denies Anxiety, Denies Depressed, Denies Emotional Problems All Other Systems Reviewed Negative Unless Noted: Yes (Negative excepted noted.) Physical Exam General Appearance: No Apparent Distress, WD/WN HEENT: PERRL/EOMI, Normal ENT Inspection Neck: Normal Inspection, Non Tender Respiratory: Chest Non Tender, No Accessory Muscle Use, No Respiratory Distress Cardiovascular: Regular Rate, Rhythm, No JVD Gastrointestinal: Soft, Tenderness (RLQ) Rectal: Deferred Back: No CVA Tenderness Extremity: Normal Capillary Refill, Non Tender Neurologic/Psychiatric: Alert, Oriented x3, No Motor/Sensory Deficits, Normal Mood/Affect Skin: Normal Color, Warm/Dry Lymphatic: No Adenopathy Assessment/Plan Assessment/Plan Admission Diagonsis rlq abd pain acute appendicitis Admission Status: Observation Assessment/Plan Acute appendicitis, rlq abd pain-discussed risks and benefits of laparoscopic appendectomy all other indicated procedures.. NPO, IV fluids and Fentanyl, Morphine for pain control To or today Supervisory-Addendum Brief Verification & Attestation Participated in pt care: history, MDM, physical Personally performed: exam, history, MDM, supervision of care Care discussed with: Medical Student Procedures: n/a Results interpretation: Verified all documentation Verification and Attestation of Medical Student E/M Service A medical student performed and documented this service in my presence. I reviewed and verified all information documented by the medical student and made modifications to such information, when appropriate. I personally performed the physical exam and medical decision making. Ny Encinas Apr 14, 2021,13:02 KEE RAY Apr 14, 2021 11:55 [place] ENCINAS DO Apr 14, 2021 13:00
[2021-04-14] MEDS ORDERED: ONDANSETRON 4 MG/2 ML (SDV) Z0FRAN IV PRN (12:15)
[2021-04-14] MEDS ORDERED: LACTATED RINGERS 1,000 ML IV SCH (12:15)
[2021-04-14] MEDS ORDERED: morphine INJ 4 MG/ML 1 ML (VIAL/SYRINGE) IV PRN (12:15)
[2021-04-14] MEDS ORDERED: LIDOCAINE/EPI 1%-1:200,000 (XYLOCAINE) 30 ML VIAL ONE (13:01)
[2021-04-14] MEDS ORDERED: ceFAZolin INJECTION 1,000 MG in WATER (STERILE) FOR INJECTION 10 ML IV ONE (13:15)
[2021-04-14] MEDS ORDERED: metroNIDAZOLE 500MG/100ML IVPB 100 ML IV ONE (13:15)
[2021-04-14] MEDS ORDERED: fentaNYL INJ 100 MCG/2 ML AMP ONE (14:43)
[2021-04-14] MEDS ORDERED: MIDAZOLAM 2 MG/2 ML (VERSED) VIAL ONE (14:43)
[2021-04-14] MEDS ORDERED: LIDOCAINE PF 2% 5 ML (XYLOCAINE) VIAL ONE (14:44)
[2021-04-14] MEDS ORDERED: ROCURONIUM 10 MG/ML 5 ML SYRINGE IV ONE (14:44)
[2021-04-14] MEDS ORDERED: SEVOFLURANE (ULTANE) 15 ML INHAL SOLN ONE ×2 (14:44→16:41)
[2021-04-14] MEDS ORDERED: ONDANSETRON 4 MG/2 ML (SDV) Z0FRAN ONE (14:44)
[2021-04-14] MEDS ORDERED: proPOfol 200 MG/20 ML (DIPRIVAN) VIAL IV ONE (14:44)
[2021-04-14] MEDS ORDERED: ceFAZolin INJECTION 1,000 MG ONE (16:09)
[2021-04-14] MEDS ORDERED: KETOROLAC 30 MG/ML VIAL ONE (16:25)
--- NOTE | 2021-04-14 16:38 | Progress Note-Post Operative ---
Post-Operative Progess Note Surgeon (s)/Mushroom Cutter (s) Surgeon [place] ENCINAS DO Mushroom Cutter: na Pre-Operative Diagnosis acute appendicitis, rlq abd pain Post-Operative Diagnosis dilated appendix early acute appendicitis Procedure & Operative Findings Date of Procedure 04/14/21 Procedure Performed/Findings PROCEDURE: Laparoscopic appendectomy. COMPLICATIONS: None. INDICATIONS: The patient is a 60 year old female who has been having right lower quadrant abdominal pain. Patient's exam consistent with appendicitis. I discussed risk and benefits of laparoscopic appendectomy and all indicated procedures with the possibility being a normal appendix. The patient understands the risks and benefits and wishes to proceed. Consent was signed on the chart. DESCRIPTION OF PROCEDURE: The patient was taken to the operating suite, prepped and draped in a sterile fashion. Timeout was performed. Local anesthetic was infiltrated just above the umbilicus and 11-blade scalpel was used to make a skin incision. Cautery was used to dissect down to the fascia and scored. Kochers were used to grasp and elevate it and the abdomen was then entered. A 0 Vicryl was placed in a [id number]-yratm fashion for closure at the end of the case. The balloon trocar was inserted into the abdomen and pneumoperitoneum was achieved. Under direct visualization of the laparoscope, a 5 mm trocar was placed in the suprapubic region and a 5 mm trocar was placed in the left lower quadrant. Appendix was located, Dilated appendix with slight inflammation around it. The base of the appendix was dissected around. Once at the base an Endo-MARYCARMEN 2.5 stapler was then fired across the base of the appendix. The mesoappendix was then divided. It was then placed in an Endobag and removed through the 12 mm trocar site. The abdomen was then irrigated and suctioned. No other pathology noted. The abdomen was then desufflated and the trocars were removed. The 0 Vicryl placed at the beginning of the case was then tied closing the 12 mm fascial defect. The skin was then closed using 4-0 Monocryl in a subcuticular fashion. The abdomen was then washed and dried and Skin Affix was placed over the incisions. The patient tolerated the procedure well without any complications and was taken to the recovery room in stable condition. Anesthesia Type general Estimated Blood Loss Estimated blood loss (mL): minimal Specimens/Packing Specimens Removed appendix NY ENCINAS 29, 2021 16:38
[2021-04-14] MEDS ORDERED: ACHD5005 PO (16:39)
[2021-04-14] MEDS ORDERED: DOCU-143 PO (16:39)
[2021-04-14] MEDS ORDERED: NEOSTIGMINE 3 MG/3 ML VIAL ONE (16:41)
[2021-04-14] MEDS ORDERED: GLYCOPYRROLATE 0.2 MG/ML (ROBINUL) 2 ML VIAL ONE (16:41)
--- NOTE | 2021-04-14 16:55 | Discharge Inst-Simple/Standard ---
Discharge Inst-Standard Discharge Medications New, Converted or Re-Newed RX: Transmitted to Pharmacy Patient Instructions/Follow Up Plan of Care/Instructions/FU: 2 weeks Kaitlin Activity as Tolerated: No Discharge Diet: Regular Diet Other Inst to Patient Follow up Appt: Make appointment for 2 week. Instructions: No lifting greater than 10 pounds. No strenuous activity. May shower in 24 hours, no tub bath or soaking. Use incentive spirometer at home as directed. No Smoking Skin/Wound Care: You have special glue over your incision that will fall off on it's own. Symptoms to Report: Appetite Changes, Extremity Discoloration, Numbness/Tingling, Swelling Increased, Bleeding Excessive, Eyesight Changes, Pain Increased, Urine Color Change, Constipation(Persistent), Fever over 101 degree F, Pain/Pressure in chest, Urinating Difficulty, Cough Up/Vomit Blood, Heart Beat Irreg/Pounding, Pain/Pressure in jaw, Vaginal Bleeding Increase, Cramps in feet or legs, Lightheadedness, Pain/Pressure in shoulder, Diarrhea(Persistent), Memory Changes Suddenly, Questions/Concerns, Weight gain consecutive days, Dizziness/Fainting, Nausea/Vomiting, Shortness of Breath, Weight gain over 2 pounds If questions or concerns contact your physician Or seek help at emergency department. NY ENCINAS DO Apr 14, 2021 16:46
--- NOTE | 2021-04-15 15:00 | Anesthesia-General Post-Op ---
General Patient Condition Mental Status/LOC: Same as Preop Cardiovascular: Satisfactory Nausea/Vomiting: Absent Respiratory: Satisfactory Pain: Controlled Complications: Absent Post Op Complications Complications None Follow Up Care/Instructions Patient Instructions None needed. Anesthesia/Patient Condition Patient Condition Patient is already discharged to home but she was doing well, no complaints, stable vital signs, no apparent adverse anesthesia problems noted prior to her discharge. DAYLIN COTTRELL DO Apr 15, 2021 15:00
== END 2021-04-14 18:55 | disposition home or self-care (01) ==
LOC: EDUNIT# 06:53 → ER 06:57 → 4TH 10:24 → SDC 10:24 → 4TH 10:24 → UNDOADMOB 10:24 → UNDODISOB 18:55 → SDC 18:55
PROVIDERS: ATTEND Surgery
DX: K35.80 Unspecified acute appendicitis (principal); F32.9 Major depressive disorder, single episode, unspecified; Z79.899 Other long term (current) drug therapy; Z90.49 Acquired absence of other specified parts of digestive tract; Z79.891 Long term (current) use of opiate analgesic
CPT/HCPCS: 36415; 71045; 74177; 80053; 81000; 83690; 83735; 85007; 85027; 86141; 87636; 88304; 96361; 96374; 96375